=== PATIENT | female | born 1985 | race Caucasian/White ===

== ENCOUNTER → 2016-08-16 | Outpatient (CLI) | payer OTHER ==
[~2016-08-16] MED LIST: OMEP20CA6 PO
--- NOTE | 2016-08-16 15:34 | Diagnostic Imaging Report ---
INDICATION: Supervision of . EXAMINATION: sonogram 08/16/2016. COMPARISON: 07/19/2016 FINDINGS: Grayscale and color Doppler ultrasound imaging of the pelvis is performed. There is a single live intrauterine gestation currently measuring 18 weeks 3 days by today's sonogram. Estimated date of delivery is 01/14/2017 based on these measurements. Amniotic fluid index is normal. heart rate is 139 beats per minute. The placenta is low-lying and in fact may even extend across the internal os. The visualized anatomy is unremarkable. IMPRESSION: 1. Single live intrauterine gestation measuring 18 weeks 3 days by today's sonogram. Visualized anatomy unremarkable. 2. Placenta previa is noted. A short-term interval followup recommended for reevaluation of this finding. Dictated by: Dictated on workstation # [id number]
== END ==
LOC: RAD 12:48
PROVIDERS: ATTEND Obstetrics & Gynecology
DX: Z34.82 Encounter for supervision of other normal pregnancy, second trimester (principal); Z67.11 Type A blood, Rh negative; Z98.891 History of uterine scar from previous surgery
CPT/HCPCS: 76801

== ENCOUNTER → 2016-09-14 | Outpatient (CLI) | payer OTHER | LOC: RAD 12:14 | PROVIDERS: ATTEND Obstetrics & Gynecology | DX: Z34.82 Encounter for supervision of other normal pregnancy, second trimester (principal); O44.42 Low lying placenta NOS or without hemorrhage, second trimester; Z98.891 History of uterine scar from previous surgery | CPT/HCPCS: 76815 ==

== ENCOUNTER → 2016-10-05 | Outpatient (CLI) | payer OTHER ==
[2016-10-05 08:54] LABS: BASOPHILS % (AUTO) 0 % (0-2); EOSINOPHILS # (AUTO) 0.1 10^3uL; EOSINOPHILS % (AUTO) 1 % (0-4); LYMPHOCYTES # (AUTO) 2.2 X10^3; MEAN CORPUSCULAR VOLUME 93 FL (80-100); MEAN PLATELET VOLUME 10.6 FL (6.0-9.5); MONOCYTES # (AUTO) 0.9 X10^3; MONOCYTES % (AUTO) 7 % (3-11); NEUTROPHILS # (AUTO) 9.2 X10^3; NEUTROPHILS % (AUTO) 73 % (51-67); PLATELET COUNT 220 10^3uL (150-450)
[2016-10-05 09:02] LABS: MEAN CORPUSCULAR HEMOGLOBIN 33.4 PG (26.0-34.0); MEAN CORPUSCULAR HGB CONC 35.9 g/dL (31.0-37.0)
== END ==
LOC: LAB 08:38
PROVIDERS: ATTEND Obstetrics & Gynecology
DX: Z33.1 Pregnant state, incidental (principal)
CPT/HCPCS: 36415; 82947; 82950; 85025; 86850

== ENCOUNTER → 2016-10-21 | Outpatient (CLI) | payer OTHER | LOC: LAB 07:03 | PROVIDERS: ATTEND Obstetrics & Gynecology | DX: Z34.82 Encounter for supervision of other normal pregnancy, second trimester (principal) | CPT/HCPCS: 82951; 82952 ==